=== PATIENT | male | born 1945 | race Caucasian/White ===

== ENCOUNTER → 2020-04-24 | Outpatient (CLI) | payer MEDICARE, BC ==
[~2020-04-24] VITALS: Ht 182.9 cm; Wt 83.5 kg
[2020-04-24 12:12] LABS: HEMATOCRIT 43.5 % (42.0-52.0); HEMOGLOBIN 14.6 gm/dL (14.0-18.0); MCH 28.6 pg (26.0-34.0); MCHC 33.6 g/dL (28.0-37.0); MPV 7.5 fl. (7.2-11.1); RBC 5.11 mil/uL (4.50-6.00); RDW-CV 16.9 % (10.5-14.5); WBC 6.8 thou/uL (4.0-11.0)
[2020-04-24 12:20] VITALS: BP 100/73
[2020-04-24 12:22] LABS: APTT 29.5 Seconds (25.0-31.3); INR 1.1; PROTIME 11.4 Seconds (9.20-11.50)
[2020-04-24 15:14] VITALS: BP 108/68
== END | disposition home or self-care (01) ==
LOC: M.INT 11:10
PROVIDERS: ATTEND Radiology Diagnostic Radiology
DX: R18.0 Malignant ascites (principal); C18.9 Malignant neoplasm of colon, unspecified; I25.10 Atherosclerotic heart disease of native coronary artery without angina pectoris; Z98.890 Other specified postprocedural states; Z79.899 Other long term (current) drug therapy; Z95.1 Presence of aortocoronary bypass graft